=== PATIENT | female | born 1960 | race Caucasian/White ===

== ENCOUNTER 2017-03-02 06:36 | Day surgery (SDC) | payer OTHER ==
[~2017-03-02] VITALS: Ht 154.9 cm; Wt 149.1 kg
[~2017-03-02 06:36] MED LIST: ASPIRIN EC325 MG PO; ASPIRIN325 MG PO; ATORVASTATIN CA80 MG PO; CALCIUM CITRAT200 MG PO; CALCIUM CITRATE PO; CALTRATE PLUS1 EACH PO; COZAAR100 MG PO; CYANOCOBALAM1000 MCG PO; FENOFIBRATE145 M1 PO; FOLIC ACID1 MG PO; GLUCOPHAGE1000 MG PO; IBUPROFEN600 MG PO; IMDUR60 MG PO; INDOCIN50 MG PO; INSULIN PUMP SCCONT; IRON325 M1 PO; IRON325 MG PO; KEFLEX500 MG PO; LANTUS 3 M100 UNITS1 SC; LEFLUNOMIDE10 MG PO; LEVOTHYROXINE125 MCG PO; LOPRESSOR25 MG PO; LOSARTAN POTASS50 MG PO; METFORMIN HCL1000 MG PO; METHOTREXATE2.5 MG PO; METOPROLOL TART25 MG PO; NORCO 5/3251 TABLET PO; NOVOLOG 10100 UNITS/ SC; PREMARIN0.625 MG PO; PROAIR HFA8.5 GM IH; PROTONIX40 MG PO; RANITIDINE HCL150 MG PO; RASUVO 2020 MG/0.4 SC; SINGULAIR10 MG PO; SYNTHROID200 MCG PO; TOUJEO SOL300 UNIT/1 SC; VICTOZA 2-0.6 MG/0.1 SC; VICTOZA0.6 MG/0.1 SC; VITAMIN D-32000 UNI2 PO; VITAMIN D31000 UNIT PO
[2017-03-02 09:17] VITALS: BP 193/87
[2017-03-02 10:02] LABS: POINT-OF-CARE METER ID UU13113694
[2017-03-02] MEDS ORDERED: NORCO 5/3251 TABLET PO (11:17)
[2017-03-02 11:37] LABS: POINT-OF-CARE METER ID UU13113675
[2017-03-02 12:55] VITALS: BP 136/61
[2017-03-02 13:54] VITALS: BP 131/55
== END 2017-03-02 14:00 | disposition home or self-care (01) ==
LOC: SDC
PROVIDERS: Surgery
PROC: 0HBU0ZX Excision of Left Breast, Open Approach, Diagnostic (ICD-10-PCS; principal; 2017-03-02)
DX: D24.2 Benign neoplasm of left breast (principal); I10 Essential (primary) hypertension; E11.9 Type 2 diabetes mellitus without complications; K21.9 Gastro-esophageal reflux disease without esophagitis; E78.5 Hyperlipidemia, unspecified; J45.909 Unspecified asthma, uncomplicated; E66.01 Morbid (severe) obesity due to excess calories; Z68.44 Body mass index [BMI] 60.0-69.9, adult; E03.9 Hypothyroidism, unspecified; Z79.82 Long term (current) use of aspirin; Z79.84 Long term (current) use of oral hypoglycemic drugs; Z79.4 Long term (current) use of insulin; Z80.3 Family history of malignant neoplasm of breast
CPT/HCPCS: 82948; 88307; J0131; J0330; J0690; J2250; J2405; J3010

== ENCOUNTER 2018-01-26 07:54 | Day surgery (SDC) | payer OTHER ==
[~2018-01-26] VITALS: Ht 154.9 cm; Wt 148.0 kg
[~2018-01-26 07:54] MED LIST changes: +AMLODIPINE BESYL5 MG PO; +ISOSORBIDE MONO30 MG PO; +LYRICA150 MG PO; +NITROSTAT0.4 MG SL; +PRILOSEC20 MG PO
== END 2018-01-26 16:52 | disposition home or self-care (01) ==
LOC: CATH 07:54
PROVIDERS: Internal Medicine Cardiovascular Disease
PROC: 4A023N7 Measurement of Cardiac Sampling and Pressure, Left Heart, Percutaneous Approach (ICD-10-PCS; principal; 2018-01-26)
PROC: B2151ZZ Fluoroscopy of Left Heart using Low Osmolar Contrast (ICD-10-PCS; principal; 2018-01-26)
PROC: B2111ZZ Fluoroscopy of Multiple Coronary Arteries using Low Osmolar Contrast (ICD-10-PCS; principal; 2018-01-26)
DX: I25.10 Atherosclerotic heart disease of native coronary artery without angina pectoris (principal); I10 Essential (primary) hypertension; E11.65 Type 2 diabetes mellitus with hyperglycemia; E78.2 Mixed hyperlipidemia; E66.01 Morbid (severe) obesity due to excess calories; Z68.43 Body mass index [BMI] 50.0-59.9, adult; Z79.82 Long term (current) use of aspirin; Z79.4 Long term (current) use of insulin
CPT/HCPCS: 82948; 85347; C1769; C1887; J0153; J0583; J1644; J2250; J3010; J7040

== ENCOUNTER → 2018-03-22 | Outpatient (CLI) | payer OTHER ==
[~2018-03-22] VITALS: Ht 154.9 cm; Wt 147.3 kg
[~2018-03-22] MED LIST changes: +BENICAR40 MG PO; -LYRICA150 MG PO; +LYRICA75 MG PO; +RANEXA500 MG PO; +ZANTAC150 MG PO
== END | disposition home or self-care (01) ==
LOC: AMB 13:27
PROVIDERS: Internal Medicine Gastroenterology
DX: K62.1 Rectal polyp (principal); K64.8 Other hemorrhoids; K29.70 Gastritis, unspecified, without bleeding
CPT/HCPCS: 82948; 88305; 88342 TC; J3010